=== PATIENT | male | born 1945 | race American Indian/Alaskan Native ===

== ENCOUNTER 2016-07-25 06:12 | Inpatient (IN) | payer MEDICARE ==
[2016-07-25 07:07] LABS: Basophils % (Auto) 1.2 % (0.0-1.8); Eosinophils % (Auto) 2.7 % (0.0-4.3); Hematocrit 36.2 % (35.5-45.6); Hemoglobin 11.5 gm/dl (11.8-15.2); Mean Corpuscular HGB Conc 32 % (32-34); Mean Corpuscular Hemoglobin 28 pg (28-32); Mean Corpuscular Volume 88 fl (84-94); Platelet Count 225 K/mm3 (140-440); Red Blood Count 4.14 M/mm3 (3.65-5.03); Red Cell Distribution Width 17.1 % (13.2-15.2); White Blood Count 6.3 K/mm3 (4.5-11.0)
[2016-07-25 07:25] LABS: Calcium 8.7 mg/dL (8.4-10.2); Chloride 107.4 mmol/L (98-107); Potassium 4.2 mmol/L (3.6-5.0)
--- NOTE | 2016-07-25 07:25 | XRay Report ---
ROUTINE CHEST, TWO VIEWS: HISTORY: Shortness of breath. Moderate to severe cardiomegaly and moderate pulmonary venous congestion appear relatively stable since 06/15/16. The lungs are clear. No large pleural effusion, consolidation or pneumothorax. Previous CABG changes are noted. The thoracic cage is grossly intact. IMPRESSION: Cardiomegaly and pulmonary venous congestion but no CHF. Little change since 06/15/16.
[2016-07-25] MEDS ORDERED: LASIX IV ONE (17:10)
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
[2016-07-26] MEDS: APRESOLINE IV PRN ×2 (00:32→06:24)
[2016-07-26] MEDS ORDERED: AMBIEN PO PRN (00:35)
[2016-07-26] MEDS ORDERED: COLCRYS PO PRN (00:35)
[2016-07-26] MEDS ORDERED: NORCO 7.5/325 PO PRN (00:35)
--- NOTE | 2016-07-26 00:41 | Event Note ---
Date: 07/25/16 See H/p in reports CHF exacerbation HTN HLD Gout Depression CAD ECHO/cardiology consult Lasix 40 q12h
--- NOTE | 2016-07-26 01:46 | History and Physical Report ---
CHIEF COMPLAINT: Increasing shortness of breath for the last 2 to 3 days. HISTORY OF PRESENT ILLNESS: A 71-year-old male presents with increasing shortness of breath off and on for 4 months, worsened last night. The patient has a history of CHF, hypertension, mitral valve replacement, coronary artery disease, and stent placement in the past. The patient has an ejection fraction of 70% to 75%. Orthopnea present. Paroxysmal nocturnal dyspnea present. Unable to walk more than few steps. The patient has [place] Heart Association class 4 symptoms. No fever, no chills. PAST MEDICAL HISTORY: Significant for hypertension, hyperlipidemia, coronary artery disease. Also, depression and history of gout. SURGICAL HISTORY: Significant for quadruple bypass surgery and stent placement. Also, mitral valve placement. SOCIAL HISTORY: Does not smoke. No alcohol, no recreational drugs. FAMILY HISTORY: Significant for hypertension. REVIEW OF SYSTEMS: Significant for: CONSTITUTIONAL: No weight loss, no weight gain. No weakness. No poor appetite. HEENT: No sore throat, no postnasal drip. CARDIOVASCULAR AND RESPIRATORY SYSTEM: Shortness of breath on minimal exertion present. Paroxysmal nocturnal dyspnea present. Orthopnea present. No palpitations. No irregular heart beat. No cough. No excessive sputum. GASTROINTESTINAL: No nausea, no vomiting, no diarrhea. GENITOURINARY SYSTEM: No dysuria, no flank pain. MUSCULOSKELETAL SYSTEM: No joint pain, no morning stiffness. CENTRAL NERVOUS SYSTEM: No syncope, no seizures. No focal deficits. INTEGUMENTARY SYSTEM: No rash, no pruritus, no redness, no sores, no wounds, no boils. PSYCHIATRIC: Some depression present. ENDOCRINE: No cold intolerance, heat intolerance, or polyphagia. ALLERGY AND IMMUNOLOGIC: No urticaria. No allergic rhinitis. HEMATOLOGIC AND LYMPHATIC SYSTEM: No easy bruising or easy bleeding. A 14-point review of systems was done. Other than shortness of breath and PND essentially negative. PHYSICAL EXAMINATION: GENERAL: Elderly male, cooperative during examination. VITAL SIGNS: Blood pressure is 153/92, temperature is 98, pulse is 72, respirations are 31. HEENT: Unremarkable. Pupils equal and reactive. NECK: Supple. No lymphadenopathy, no thyromegaly. LUNGS: Scattered rales bilaterally. CARDIOVASCULAR: S1, S2 heard. No gallop, no murmur, no rub. Apical impulse in left fifth intercostal space in midclavicular line. ABDOMEN: Soft and benign. No hepatosplenomegaly, no guarding, no rigidity. Hernial orifices are normal. EXTREMITIES: Good pedal pulses. No pedal edema. CENTRAL NERVOUS SYSTEM: Alert and oriented x 4, nonfocal exam. LABORATORY DATA: Significant for BUN and creatinine of 27 and 1.5, chloride is 107.4, bicarb is 21. EKG interpreted by me, sinus tachycardia with heart rate of about sometimes 100. Chest x-ray shows congestive heart failure. BNP is 9838. Troponin is 0.045. ASSESSMENT AND PLAN: 1. Congestive heart failure exacerbation-combined. The patient is started on Lasix 40 mg q.12 and potassium 20 meq q.12. The patient also to be seen by Cardiology at [facility]. Apparently, the patient follows with [facility], but not sure. 2. Hypertension. Continue amlodipine and olmesartan 10/40 p.o. daily, atenolol 50 mg daily, clonidine 0.1 t.i.d. 3. Coronary artery disease. Continue aspirin 325 mg daily and Plavix 75 mg daily and also, isosorbide mononitrate 30 mg p.o. daily. 4. Depression. Continue trazodone. 5. Hyperlipidemia. Continue atorvastatin 40 mg p.o. daily. 6. Deep venous thrombosis prophylaxis, Lovenox 40 mg subcutaneous daily. JOB# [id number] MELIDA/ELISEO QUIÑONES
[2016-07-26] MEDS: LASIX IV SCH ×2 (06:23→18:00)
[2016-07-26] MEDS: TENORMIN PO SCH (09:26)
[2016-07-26] MEDS: K-DUR PO SCH ×2 (09:26→22:25)
[2016-07-26] MEDS: PLAVIX PO SCH (09:26)
[2016-07-26] MEDS: COZAAR PO SCH (09:28)
[2016-07-26] MEDS: IMDUR PO SCH (09:29)
[2016-07-26] MEDS: NORVASC PO SCH (09:29)
[2016-07-26] MEDS: CATAPRES PO SCH ×3 (09:30→22:24)
[2016-07-26] MEDS: ASPIRIN PO SCH (09:34)
--- NOTE | 2016-07-26 09:43 | Progress Note ---
Assessment and Plan Assessment and plan: 1. 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 Patient with recent echocardiogram which revealed EF of 30-35% and elevated filling pressures. Patient had evidence of right ventricular enlargement and dysfunction. Continue diuresis. Cardiology consultation pending. 2. Acute hypoxemic respiratory failure. Etiology secondary to #1. Continue O2 and BiPAP as needed. 3. Coronary artery disease. Patient status post CABG 2007. Patient with recent heart catheterization with ROLLINS to LAD patent, SVG to D2 with a Y graft to PLOM is patent and Successful PCI of the RCA, proximal and ostial lesions treated with 4.0-4.5 DE and BM stents. Continue medical therapy. 4. 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 Elevated troponin. Patient with chronically elevated troponin secondary to #1. 6. Chronic kidney disease stage I. Baseline creatinine 1.73 and 2016. 7. Severe obstructive sleep apnea. CPAP. Pulmonary consultation. 8. Hypertension. Continue antihypertensive medications. 9. Hyperlipidemia. Continue medications. 10. DVT prophylaxis. Continue Lovenox. History Interval history: 71-year-old male was admitted with acute on chronic systolic CHF exacerbation. Patient still complains of shortness of breath. Patient appears tachypnea with accessory muscle use. Hospitalist Physical - Constitutional Vitals: Temp Pulse Resp BP Pulse Ox 98.2 F 86 22 120/64 98 07/26/16 07:33 07/26/16 07:33 07/26/16 07:33 07/26/16 07:33 07/26/16 07:33 General appearance: Present: mild distress - EENT Eyes: Present: PERRL, EOM intact ENT: hearing intact, clear oral mucosa, dentition normal - Neck Neck: Present: supple, normal ROM - Respiratory Respiratory effort: normal Respiratory: bilateral: diminished, rales - Cardiovascular Rhythm: regular Heart Sounds: Present: S1 & S2. Absent: gallop, rub - Extremities Extremities: no ischemia, Full ROM Extremity abnormal: edema (3+) - Abdominal General gastrointestinal: soft, non-tender, non-distended, normal bowel sounds - Integumentary Integumentary: Present: clear, warm, dry - Neurologic Neurologic: CNII-XII intact, moves all extremities Results - Labs CBC & Chem 7: 07/25/16 06:52 07/25/16 06:52 Labs: Laboratory Last Values WBC 6.3 K/mm3 (4.5-11.0) 07/25/16 06:52 RBC 4.14 M/mm3 (3.65-5.03) 07/25/16 06:52 Hgb 11.5 gm/dl (11.8-15.2) L 07/25/16 06:52 Hct 36.2 % (35.5-45.6) 07/25/16 06:52 MCV 88 fl (84-94) 07/25/16 06:52 MCH 28 pg (28-32) 07/25/16 06:52 MCHC 32 % (32-34) 07/25/16 06:52 RDW 17.1 % (13.2-15.2) H 07/25/16 06:52 Plt Count 225 K/mm3 (140-440) 07/25/16 06:52 Lymph % (Auto) 25.8 % (13.4-35.0) 07/25/16 06:52 [place] % (Auto) 8.6 % (0.0-7.3) H 07/25/16 06:52 Eos % (Auto) 2.7 % (0.0-4.3) 07/25/16 06:52 Baso % (Auto) 1.2 % (0.0-1.8) 07/25/16 06:52 Lymph # 1.6 K/mm3 (1.2-5.4) 07/25/16 06:52 [place] # 0.5 K/mm3 (0.0-0.8) 07/25/16 06:52 Eos # 0.2 K/mm3 (0.0-0.4) 07/25/16 06:52 Baso # 0.1 K/mm3 (0.0-0.1) 07/25/16 06:52 Seg Neutrophils % 61.7 % (40.0-70.0) 07/25/16 06:52 Seg Neutrophils # 3.9 K/mm3 (1.8-7.7) 07/25/16 06:52 Sodium 145 mmol/L (137-145) 07/25/16 06:52 Potassium 4.2 mmol/L (3.6-5.0) 07/25/16 06:52 Chloride 107.4 mmol/L (98-107) H 07/25/16 06:52 Carbon Dioxide 21 mmol/L (22-30) L 07/25/16 06:52 Anion Gap 21 mmol/L 07/25/16 06:52 BUN 27 mg/dL (9-20) H 07/25/16 06:52 Creatinine 1.5 mg/dL (0.8-1.5) 07/25/16 06:52 Estimated GFR 56 ml/min 07/25/16 06:52 BUN/Creatinine Ratio 18.00 % 07/25/16 06:52 Glucose 138 mg/dL (75-100) H 07/25/16 06:52 Calcium 8.7 mg/dL (8.4-10.2) 07/25/16 06:52 Troponin T 0.045 ng/mL (0.00-0.029) H 07/25/16 06:52 NT-Pro-B Natriuret Pep 9838 pg/mL (0-900) H 07/25/16 06:52 Triglycerides 68 mg/dL (2-149) 07/25/16 06:52 Cholesterol 127 mg/dL (50-199) 07/25/16 06:52 LDL Cholesterol Direct 75 mg/dL (50-130) 07/25/16 06:52 HDL Cholesterol 39 mg/dL (40-59) L 07/25/16 06:52 Cholesterol/HDL Ratio 3.25 % 07/25/16 06:52
[2016-07-26] MEDS ORDERED: AMLODIPINE BES PO SCH (10:00)
[2016-07-26] MEDS ORDERED: OLMESARTAN MED PO SCH (10:00)
[2016-07-26] MEDS ORDERED: LOVENOX SUB-Q SCH (10:00)
--- NOTE | 2016-07-26 11:32 | Consultation ---
Addendum entered and electronically signed by GLORIA DAMIAN MD 07/26/16 15:37 : As already reported, this patient has coronary artery disease, prior coronary bypass, and 3 months ago underwent stenting of the ostium and proximal segment of the previously unbypassed right coronary. 4.0-4.5 mm drug-eluting stents were used. On this presentation, the patient no chest pain, and no ischemic ST changes on his EKG despite admittedly being noncompliant with his medications including his oral antiplatelet therapy for one to 2 weeks prior to presentation. Will remind the patient about the use of his dual oral antiplatelet therapy, and the high risks of acute stent thrombosis/myocardial infarction associated with noncompliance. We strongly recommend that he maintains compliance with his medications as prescribed. Addendum entered and electronically signed by GLORIA DAMIAN MD 07/26/16 15:33 : Optimize medical therapy for that failure patient with underlying, severe ischemic cardiomyopathy and chronic systolic heart failure. After heart failure is optimally treated, the patient will benefit from predischarge early outpatient Persantine thallium. Original Note: History of Present Illness Consult date: 07/26/16 Consult reason: congestive heart failure History of present illness: This is a 71yr old man with a history of coronary artery disease status post remote 4 way coronary bypass grafting. A cardiac cath done at this hospital 3 months ago showed a patent ROLLINS graft to LAD patent. Patent SVG to second diagonal. Patent Y graft to posterolateral obtuse marginal. Proximal and ostial lesions of the RCA treated with stents. He also has a history of ischemic dilated cardiomyopathy and bioprosthetic mitral valve replacement. Echocardiogram done a month ago reports a moderate AR, moderate PH, ejection fraction 20%. Normal functioning bioprosthetic AVR. Patient returns to the hospital with worsening shortness of breath associated with lower extremity edema. He denies chest pain. Admits to running out of his medications and noncompliant with dietary/fluid restrictions. His ECG shows a sinus rhythm with LVH and a incomplete LBBB. No acute changes. Cardiac consultation requested for CHF. Medications and Allergies Allergies Allergy/AdvReac Type Severity Reaction Status Date / Time Iodinated Contrast Media - Allergy Anaphylaxis Verified 06/15/16 18:01 IV Dye Home Medications Medication Instructions Recorded Confirmed Last Taken Type Amlodipine Bes/Olmesartan Med 1 tab PO DAILY 04/30/16 07/25/16 1 Day Ago History [Nayeli 10-40 mg] Colchicine [Colcrys] 0.6 mg PO DAILY PRN 04/30/16 07/25/16 1 Day Ago History Zolpidem [Ambien] 10 mg PO QHS PRN 04/30/16 07/25/16 1 Day Ago History traZODone [Desyrel] 100 mg PO QHS 04/30/16 07/25/16 1 Day Ago History Aspirin [Aspirin TAB] 81 mg PO QDAY #30 tablet 05/08/16 07/25/16 1 Day Ago Rx Atenolol [Tenormin] 50 mg PO QDAY #30 tablet 05/08/16 07/25/16 1 Day Ago Rx AtorvaSTATin [Lipitor] 40 mg PO QHS #30 tablet 05/08/16 07/25/16 1 Day Ago Rx Clopidogrel [Plavix] 75 mg PO QDAY #30 tablet 05/08/16 07/25/16 1 Day Ago Rx Furosemide [Lasix TAB] 20 mg PO QDAY #30 tablet 05/08/16 07/25/16 1 Day Ago Rx HYDROcodone/APAP 7.5-325 [[place] 1 each PO Q8HR PRN #30 tablet 05/08/16 07/25/16 2 Weeks Ago Rx 7.5-325 mg TAB] ISOSORBIDE MONOnitrate [Imdur ER] 30 mg PO QDAY #30 tablet 05/08/16 07/25/16 1 Day Ago Rx cloNIDine [Catapres] 0.1 mg PO TID #90 tablet 05/08/16 07/25/16 1 Day Ago Rx Active Meds: Active Medications Acetaminophen/Hydrocodone Bitart ([place] 7.5/325) 1 each PO Q8HR PRN PRN Reason: Pain Amlodipine Besylate (Norvasc) 10 mg PO DAILY [facility] Last Admin: 07/26/16 09:29 Dose: 10 mg Aspirin (Aspirin) 81 mg PO QDAY [facility] Last Admin: 07/26/16 09:34 Dose: 81 mg Atenolol (Tenormin) 50 mg PO QDAY [facility] Last Admin: 07/26/16 09:26 Dose: 50 mg Atorvastatin Calcium (Lipitor) 40 mg PO QHS [facility] Clonidine HCl (Catapres) 0.1 mg PO TID [facility] Last Admin: 07/26/16 09:30 Dose: 0.1 mg Clopidogrel Bisulfate (Plavix) 75 mg PO QDAY [facility] Last Admin: 07/26/16 09:26 Dose: 75 mg Colchicine (Colcrys) 0.6 mg PO DAILY PRN PRN Reason: Gout Enoxaparin Sodium (Lovenox) 40 mg SUB-Q QDAY@2200 [facility] Furosemide (Lasix) 40 mg IV 0600,1800 [facility] Last Admin: 07/26/16 06:23 Dose: 40 mg Hydralazine HCl (Apresoline) 5 mg IV Q6HR PRN PRN Reason: Hypertension Last Admin: 07/26/16 06:24 Dose: 5 mg Isosorbide Mononitrate (Imdur) 30 mg PO QDAY [facility] Last Admin: 07/26/16 09:29 Dose: 30 mg Losartan Potassium (Cozaar) 100 mg PO DAILY [facility] Last Admin: 07/26/16 09:28 Dose: 100 mg Potassium Chloride (K-Dur) 20 meq PO Q12HR [facility] Last Admin: 07/26/16 09:26 Dose: 20 meq Trazodone HCl (Desyrel) 100 mg PO QHS [facility] Zolpidem Tartrate (Ambien) 10 mg PO QHS PRN PRN Reason: Sleep Physical Examination Vital Signs Temp Pulse Resp BP Pulse Ox 98.4 F 76 18 156/97 99 07/25/16 06:22 07/25/16 06:22 07/25/16 06:22 07/25/16 06:22 07/25/16 06:22 General appearance: mild distress HEENT: Positive: PERRL Neck: Positive: trachea midline Cardiac: Positive: Reg Rate and Rhythm Lungs: Positive: Decreased Breath Sounds Extremities: Present: +2 Edema Results 07/25/16 06:52 07/25/16 06:52 Assessment and Plan Congestive heart failure, systolic LVEF 20-25% on echo 06/2016 CAD s/p CABG 2008 Cath 04/2016: ROLLINS to LAD patent SVG to D2 with a Y graft to PLOM is patent Successful PCI of the RCA, proximal and ostial lesions treated with 4.0- 4.5 DE and BM stents. Bioprosthetic MVR- normal function by echo 06/2016 Severe obstructive sleep apnea Noncompliant Recommendations: Continue medical therapy for his CHF. Will initiate a trial of IV milrinone to enhance diuresis. Continue medical therapy for his CAD including DAPT with plavix and aspirin.
[2016-07-26] MEDS: DESYREL PO SCH (22:25)
[2016-07-26] MEDS: LOVENOX SUB-Q SCH (22:26)
[2016-07-26] MEDS: PRIMACOR 20 MG in D5W 80 ML IV SCH (22:38)
--- NOTE | 2016-07-27 00:59 | Admit Criteria Form ---
Admission Criteria Documentation: HEART FAILURE: COMMON COMPLICATIONS Clinical Indications for Inpatient Care (Place 'X' for any and all applicable criteria): Ongoing inpatient care may be indicated for heart failure with ANY ONE of the following (1)(2)(3)(4)(5): [ ]I. Ongoing need for care for primary condition requiring frequent therapy adjustments because of changes in cardiac function (eg, drug dosage changes for drugs that are renally metabolized) [ ]II. New-onset heart failure [ ]III. Heart failure with decreased urine output not responsive to attempts to optimize volume status [ ]IV. Acute cardiac ischemia causing or associated with failure [X ]V. Complications of heart failure, including ANY ONE of the following: [ ]a) Pericardial effusion [ ]b) Symptomatic pleural effusion [ ]c) O2 saturation <90% or PO2 < 60 mm Hg (8.0 kPa) on room air or require baseline supplemental O2 [ ]d) Tachypnea [X ]e) Dyspnea [ ]f) Syncope [ ]g) Change in mental status [ ]h) Acute renal insufficiency that is severe (reduction of more than 50% in estimated glomerular filtration rate from baseline) or progressive reduction of more than 25% in estimated glomerular filtration rate from baseline, with creatinine continuing to rise) [ ]i) Hemodynamic instability [ ]j) Anasarca [ ]k) Clinically significant metabolic abnormalities due to heart failure (eg, new-onset metabolic acidosis) Extended stay beyond goal length of stay for primary condition may be needed until ALL of the following are present(1)(3): [ ]a) Stable and effective diuretic regimen established (or patient on stable dialysis regimen if in chronic renal failure) [ ]b) Breathing comfortably at rest [ ]c) Saturation of arterial oxygen greater than 90% or at acceptable baseline [ ]d) Pulmonary edema absent or improved [ ]e) Hemodynamic stability [ ]f) Volume status acceptable on oral medication [ ]g) Peripheral or sacral edema absent or improved [ ]h) Renal function stable and manageable at a lower level of care [ ]i) Complications (eg, pleural effusion) resolved or manageable at a lower level of care [ ]j) Patient or caregiver has received written discharge instructions or educational material addressing activity level, diet, discharge medications, follow-up appointment, weight monitoring, and what to do if symptoms worsen The original [employer] content created by [email or web address] has been revised. The portions of the content which have been revised are identified through the use of italic text or in bold, and [facility] has neither reviewed nor approved the modified material.All other unmodified content is copyright [facility]. Please see references footnoted in the original [facility] edition 2016 Admission Criteria Met: Yes
[2016-07-27 05:45] LABS: Basophils % (Auto) 1.1 % (0.0-1.8); Eosinophils % (Auto) 6.7 % (0.0-4.3); Hemoglobin 10.8 gm/dl (11.8-15.2); Mean Corpuscular HGB Conc 33 % (32-34); Mean Corpuscular Hemoglobin 29 pg (28-32); Mean Corpuscular Volume 87 fl (84-94); Platelet Count 226 K/mm3 (140-440); Red Cell Distribution Width 16.9 % (13.2-15.2); White Blood Count 5.8 K/mm3 (4.5-11.0)
[2016-07-27 06:08] LABS: BUN/Creatinine Ratio 18.66; Calcium 8.7 mg/dL (8.4-10.2); Chloride 108.5 mmol/L (98-107)
[2016-07-27] MEDS: LASIX IV SCH ×2 (06:19→17:54)
[2016-07-27] MEDS: PRIMACOR 20 MG in D5W 80 ML IV SCH ×3 (06:36→20:14)
[2016-07-27] MEDS: TENORMIN PO SCH (09:16)
[2016-07-27] MEDS: K-DUR PO SCH ×2 (09:16→22:22)
[2016-07-27] MEDS: COZAAR PO SCH (09:17)
[2016-07-27] MEDS: IMDUR PO SCH (09:22)
[2016-07-27] MEDS: CATAPRES PO SCH ×3 (09:22→22:23)
[2016-07-27] MEDS: PLAVIX PO SCH (09:23)
[2016-07-27] MEDS: ASPIRIN PO SCH (09:24)
[2016-07-27] MEDS: NORVASC PO SCH (09:24)
--- NOTE | 2016-07-27 10:13 | Progress Note ---
Assessment and Plan Congestive heart failure, systolic LVEF 20-25% on echo 06/2016 CAD s/p CABG 2007 Cath 04/2016: ROLLINS to LAD patent SVG to D2 with a Y graft to PLOM is patent Successful PCI of the RCA, proximal and ostial lesions treated with 4.0- 4.5 DE and BM stents. Bioprosthetic MVR- normal function by echo 06/2016 Ischemic cardiomyopathy Severe obstructive sleep apnea Noncompliant Recommendations: Continue medical therapy for his CHF. Continue trial of IV milrinone for another 24hrs to enhance diuresis. Continue medical therapy for his CAD including DAPT with plavix and aspirin. Daily weights Strict I's and O's After heart failure is optimally treated, the patient will benefit from predischarge or early outpatient Persantine thallium. Subjective Date of service: 07/27/16 Interval history: Patient reports his breathing has improved. He denies chest pain. Objective Vital Signs Temp Pulse Pulse Pulse Resp BP BP 07/27/16 09:24 81 124/67 07/27/16 09:22 81 124/67 07/27/16 09:17 81 124/67 07/27/16 09:16 81 124/67 07/27/16 07:51 98.6 F 81 20 07/27/16 04:42 98.7 F 78 18 07/27/16 00:34 97.7 F 70 19 07/26/16 20:00 98.2 F 62 18 07/26/16 15:37 98.1 F 61 20 102/59 07/26/16 13:39 72 121/71 07/26/16 11:36 98.2 F 72 20 BP Pulse Ox 07/27/16 09:24 07/27/16 09:22 07/27/16 09:17 07/27/16 09:16 07/27/16 07:51 124/67 98 07/27/16 04:42 113/55 96 07/27/16 00:34 139/76 99 07/26/16 20:00 123/68 96 07/26/16 15:37 97 07/26/16 13:39 07/26/16 11:36 121/71 98 - Physical Examination General: No Apparent Distress HEENT: Positive: PERRL Neck: Positive: trachea midline Cardiac: Positive: Reg Rate and Rhythm Lungs: Positive: Decreased Breath Sounds Neuro: Positive: Grossly Intact Extremities: Present: +2 Edema - Labs and Meds CBC 07/27/16 Range/Units 04:25 WBC 5.8 (4.5-11.0) K/mm3 RBC 3.80 (3.65-5.03) M/mm3 Hgb 10.8 L (11.8-15.2) gm/dl Hct 33.0 L (35.5-45.6) % Plt Count 226 (140-440) K/mm3 Lymph # 1.4 (1.2-5.4) K/mm3 [place] # 0.7 (0.0-0.8) K/mm3 Eos # 0.4 (0.0-0.4) K/mm3 Baso # 0.1 (0.0-0.1) K/mm3 Comprehensive Metabolic Panel 07/27/16 Range/Units 04:25 Sodium 148 H (137-145) mmol/L Potassium 4.0 (3.6-5.0) mmol/L Chloride 108.5 H (98-107) mmol/L Carbon Dioxide 26 (22-30) mmol/L BUN 28 H (9-20) mg/dL Creatinine 1.5 (0.8-1.5) mg/dL Glucose 108 H (75-100) mg/dL Calcium 8.7 (8.4-10.2) mg/dL
--- NOTE | 2016-07-27 10:40 | Query- Abnormal Electrolytes ---
Dear Date:07/27/16 [employer] Front Desk Clerk/CDS:Gagan Neal Phone#: Exercise your independent professional judgment when responding to this query. Questions asked do not imply a particular answer is desired or expected. We greatly appreciate your clarification on this issue. Clinical Documentation States: 71 y/o m admitted 07/25/16 for acute CHF exacerbation, systolic. Upon investigation of lab chem profile sodium values below. Clinical Findings Show: Sodium level => 148 Can you please clarify whether you mean? [ ] Hyponatremia [ ] Hypokalemia [ ] Hypocalcemia [ ] Hypomagnesemia [ x] Hypernatremia [ ] Hyperkalemia [ ] Hypercalcemia [ ] Hypermagnesemia [ ] Sodium deficiency [ ] Potassium deficiency [ ] Hypochloremia [ ] Sodium excess [ ] Potassium excess [ ] Hyperchloremia [ ] Sodium overload [ ] Potassium overload [ ] Hypophosphatemia [ ] Hyperphosphatemia Acidosis; [ ] Respiratory [ ] Metabolic Alkalosis; [ ] Respiratory [ ] Metabolic [ ] Other: [ ] Comment/Explanation: Present on Admission: [ x] Yes (Y) [ ] Clinically undeterminable (W) [ ]No(N) Please also document response in your Progress Notes and/or Discharge Summary and indicate if the condition was present on admission. NURIA
--- NOTE | 2016-07-27 11:54 | Progress Note ---
Assessment and Plan Assessment and plan: 1. Acute on chronic combined systolic and diastolic heart failure. Patient with recent echocardiogram which revealed EF of 30-35% and elevated filling pressures. Patient had evidence of right ventricular enlargement and dysfunction. Continue diuresis. Milrinone added. Continue daily weights. Strict I&O's. Cardiology following. 2. Acute hypoxemic respiratory failure. Etiology secondary to #1. Continue O2 and BiPAP as needed. 3. Coronary artery disease. Patient status post CABG 2007. Patient with recent heart catheterization with ROLLINS to LAD patent, SVG to D2 with a Y graft to PLOM is patent and Successful PCI of the RCA, proximal and ostial lesions treated with 4.0-4.5 DE and BM stents. Continue medical therapy--DAPT with Plavix and aspirin. Consider Persantine thallium per cardiology. 4. 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 Elevated troponin. Patient with chronically elevated troponin secondary to #1. 6. Chronic kidney disease stage I. Baseline creatinine 1.73 and 2016. 7. Severe obstructive sleep apnea. CPAP. 8. Hypertension. Continue antihypertensive medications. 9. Hyperlipidemia. Continue medications. 10. DVT prophylaxis. Continue Lovenox. History Interval history: 71-year-old male was admitted with acute on chronic systolic CHF exacerbation. Patient still complains of shortness of breath. However, patient states his dyspnea is somewhat better. Hospitalist Physical - Constitutional Vitals: Temp Pulse Resp BP Pulse Ox 98.6 F 81 20 124/67 98 07/27/16 07:51 07/27/16 09:24 07/27/16 07:51 07/27/16 09:24 07/27/16 07:51 General appearance: Present: no acute distress - EENT Eyes: Present: PERRL, EOM intact ENT: hearing intact, clear oral mucosa, dentition normal - Neck Neck: Present: supple, normal ROM - Respiratory Respiratory effort: normal Respiratory: bilateral: CTA - Cardiovascular Rhythm: regular Heart Sounds: Present: S1 & S2. Absent: gallop, rub - Extremities Extremities: no ischemia, No edema, Full ROM - Abdominal General gastrointestinal: soft, non-tender, non-distended, normal bowel sounds - Integumentary Integumentary: Present: clear, warm, dry - Neurologic Neurologic: CNII-XII intact, moves all extremities Results - Labs CBC & Chem 7: 01/13/17 04:25 07/27/16 04:25 Labs: Laboratory Last Values WBC 5.8 K/mm3 (4.5-11.0) 07/27/16 04:25 RBC 3.80 M/mm3 (3.65-5.03) 07/27/16 04:25 Hgb 10.8 gm/dl (11.8-15.2) L 07/27/16 04:25 Hct 33.0 % (35.5-45.6) L 07/27/16 04:25 MCV 87 fl (84-94) 07/27/16 04:25 MCH 29 pg (28-32) 07/27/16 04:25 MCHC 33 % (32-34) 07/27/16 04:25 RDW 16.9 % (13.2-15.2) H 07/27/16 04:25 Plt Count 226 K/mm3 (140-440) 07/27/16 04:25 Lymph % (Auto) 24.7 % (13.4-35.0) 07/27/16 04:25 [place] % (Auto) 11.5 % (0.0-7.3) H 07/27/16 04:25 Eos % (Auto) 6.7 % (0.0-4.3) H 07/27/16 04:25 Baso % (Auto) 1.1 % (0.0-1.8) 07/27/16 04:25 Lymph # 1.4 K/mm3 (1.2-5.4) 07/27/16 04:25 [place] # 0.7 K/mm3 (0.0-0.8) 07/27/16 04:25 Eos # 0.4 K/mm3 (0.0-0.4) 07/27/16 04:25 Baso # 0.1 K/mm3 (0.0-0.1) 07/27/16 04:25 Seg Neutrophils % 56.0 % (40.0-70.0) 07/27/16 04:25 Seg Neutrophils # 3.2 K/mm3 (1.8-7.7) 07/27/16 04:25 Sodium 148 mmol/L (137-145) H 07/27/16 04:25 Potassium 4.0 mmol/L (3.6-5.0) 07/27/16 04:25 Chloride 108.5 mmol/L (98-107) H 07/27/16 04:25 Carbon Dioxide 26 mmol/L (22-30) 07/27/16 04:25 Anion Gap 18 mmol/L 07/27/16 04:25 BUN 28 mg/dL (9-20) H 07/27/16 04:25 Creatinine 1.5 mg/dL (0.8-1.5) 07/27/16 04:25 Estimated GFR 56 ml/min 07/27/16 04:25 BUN/Creatinine Ratio 18.66 % 07/27/16 04:25 Glucose 108 mg/dL (75-100) H 07/27/16 04:25 Calcium 8.7 mg/dL (8.4-10.2) 07/27/16 04:25 Troponin T 0.045 ng/mL (0.00-0.029) H 07/25/16 06:52 NT-Pro-B Natriuret Pep 9838 pg/mL (0-900) H 07/25/16 06:52 Triglycerides 68 mg/dL (2-149) 07/25/16 06:52 Cholesterol 127 mg/dL (50-199) 07/25/16 06:52 LDL Cholesterol Direct 75 mg/dL (50-130) 07/25/16 06:52 HDL Cholesterol 39 mg/dL (40-59) L 07/25/16 06:52 Cholesterol/HDL Ratio 3.25 % 07/25/16 06:52
[2016-07-27] MEDS: DESYREL PO SCH (22:22)
[2016-07-27] MEDS: LOVENOX SUB-Q SCH (22:23)
[2016-07-28] MEDS: PRIMACOR 20 MG in D5W 80 ML IV SCH (02:20)
[2016-07-28] MEDS: LASIX IV SCH ×2 (05:51→18:27)
[2016-07-28] MEDS: CATAPRES PO SCH ×3 (08:00→21:08)
[2016-07-28] MEDS ORDERED: LEXISCAN IV ONE ×2 (09:26→09:31)
--- NOTE | 2016-07-28 10:13 | Progress Note ---
Assessment and Plan 1. Dilated ischemic cardiomyopathy LV ejection fraction 20-25% 2. Coronary artery disease status post CABG in 2007 recent cardiac cath shows patent grafts and stent 3. Bioprosthetic mitral valve functioning normally 4. Obstructive sleep apnea 5. History of noncompliance Plan. Continue present cardiac management. Discharge planning Subjective Date of service: 08/04/16 Interval history: No cardiac symptoms. Objective Vital Signs Temp Pulse Pulse Resp BP BP Pulse Ox 07/28/16 07:38 98.6 F 83 20 128/58 98 07/28/16 05:09 98.2 F 88 20 119/57 99 07/28/16 00:26 97.6 F 82 18 100/58 96 07/27/16 20:17 98.3 F 84 18 97/55 98 07/27/16 16:26 97.8 F 78 20 90/53 98 07/27/16 13:27 98.3 F 84 20 103/57 98 07/27/16 13:14 112 H 117/85 - Physical Examination General: Appears Well, No Apparent Distress HEENT: Positive: PERRL Neck: Positive: neck supple, trachea midline. Negative: JVD/HJR Cardiac: Positive: Regular Rate, S1/S2, PMI, Laterally Displaced Lungs: Positive: clear to auscultation, No Wheeze, Rales, Rhonchi Neuro: Positive: Grossly Intact, No Lateralizing Findings Abdomen: Positive: Unremarkable, Active Bowel Sounds Skin: Positive: Clear Extremities: Absent: edema
--- NOTE | 2016-07-28 10:14 | Progress Note ---
Assessment and Plan Assessment and plan: 1. Acute on chronic combined systolic and diastolic heart failure. Patient with recent echocardiogram which revealed EF of 30-35% and elevated filling pressures. Patient had evidence of right ventricular enlargement and dysfunction. Continue diuresis. Continue Milrinone drip. Continue daily weights. Strict I&O's. Cardiology following. 2. Acute hypoxemic respiratory failure. Etiology secondary to #1. Continue O2 and BiPAP as needed. 3. Coronary artery disease. Patient status post CABG 2007. Patient with recent heart catheterization with ROLLINS to LAD patent, SVG to D2 with a Y graft to PLOM is patent and Successful PCI of the RCA, proximal and ostial lesions treated with 4.0-4.5 DE and BM stents. Continue medical therapy--DAPT with Plavix and aspirin. Consider Persantine thallium per cardiology. 4. 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 Elevated troponin. Patient with chronically elevated troponin secondary to #1. 6. Chronic kidney disease stage I. Baseline creatinine 1.73 and 2016. 7. Severe obstructive sleep apnea. CPAP. 8. Hypertension. Continue antihypertensive medications. 9. Hyperlipidemia. Continue medications. 10. DVT prophylaxis. Continue Lovenox. History Interval history: 71-year-old male was admitted with acute on chronic systolic CHF exacerbation. Patient still complains of shortness of breath. However, patient states his dyspnea is somewhat better. Hospitalist Physical - Constitutional Vitals: Temp Pulse Resp BP Pulse Ox 98.6 F 83 20 128/58 98 07/28/16 07:38 07/28/16 07:38 07/28/16 07:38 07/28/16 07:38 07/28/16 07:38 General appearance: Present: no acute distress - EENT Eyes: Present: PERRL, EOM intact ENT: hearing intact, clear oral mucosa, dentition normal - Neck Neck: Present: supple, normal ROM - Respiratory Respiratory effort: normal Respiratory: bilateral: diminished, rales - Cardiovascular Rhythm: regular Heart Sounds: Present: S1 & S2. Absent: gallop, rub - Extremities Extremities: no ischemia, No edema, Full ROM - Abdominal General gastrointestinal: soft, non-tender, non-distended, normal bowel sounds - Integumentary Integumentary: Present: clear, warm, dry - Neurologic Neurologic: CNII-XII intact, moves all extremities Results - Labs CBC & Chem 7: 07/27/16 04:25 07/27/16 04:25 Labs: Laboratory Last Values WBC 5.8 K/mm3 (4.5-11.0) 07/27/16 04:25 RBC 3.80 M/mm3 (3.65-5.03) 07/27/16 04:25 Hgb 10.8 gm/dl (11.8-15.2) L 07/27/16 04:25 Hct 33.0 % (35.5-45.6) L 07/27/16 04:25 MCV 87 fl (84-94) 07/27/16 04:25 MCH 29 pg (28-32) 07/27/16 04:25 MCHC 33 % (32-34) 07/27/16 04:25 RDW 16.9 % (13.2-15.2) H 07/27/16 04:25 Plt Count 226 K/mm3 (140-440) 07/27/16 04:25 Lymph % (Auto) 24.7 % (13.4-35.0) 07/27/16 04:25 [place] % (Auto) 11.5 % (0.0-7.3) H 07/27/16 04:25 Eos % (Auto) 6.7 % (0.0-4.3) H 07/27/16 04:25 Baso % (Auto) 1.1 % (0.0-1.8) 07/27/16 04:25 Lymph # 1.4 K/mm3 (1.2-5.4) 07/27/16 04:25 [place] # 0.7 K/mm3 (0.0-0.8) 07/27/16 04:25 Eos # 0.4 K/mm3 (0.0-0.4) 07/27/16 04:25 Baso # 0.1 K/mm3 (0.0-0.1) 07/27/16 04:25 Seg Neutrophils % 56.0 % (40.0-70.0) 07/27/16 04:25 Seg Neutrophils # 3.2 K/mm3 (1.8-7.7) 07/27/16 04:25 Sodium 148 mmol/L (137-145) H 07/27/16 04:25 Potassium 4.0 mmol/L (3.6-5.0) 07/27/16 04:25 Chloride 108.5 mmol/L (98-107) H 07/27/16 04:25 Carbon Dioxide 26 mmol/L (22-30) 07/27/16 04:25 Anion Gap 18 mmol/L 07/27/16 04:25 BUN 28 mg/dL (9-20) H 07/27/16 04:25 Creatinine 1.5 mg/dL (0.8-1.5) 07/27/16 04:25 Estimated GFR 56 ml/min 07/27/16 04:25 BUN/Creatinine Ratio 18.66 % 07/27/16 04:25 Glucose 108 mg/dL (75-100) H 07/27/16 04:25 Calcium 8.7 mg/dL (8.4-10.2) 07/27/16 04:25 Troponin T 0.045 ng/mL (0.00-0.029) H 07/25/16 06:52 NT-Pro-B Natriuret Pep 9838 pg/mL (0-900) H 07/25/16 06:52 Triglycerides 68 mg/dL (2-149) 07/25/16 06:52 Cholesterol 127 mg/dL (50-199) 07/25/16 06:52 LDL Cholesterol Direct 75 mg/dL (50-130) 07/25/16 06:52 HDL Cholesterol 39 mg/dL (40-59) L 07/25/16 06:52 Cholesterol/HDL Ratio 3.25 % 07/25/16 06:52
[2016-07-28] MEDS: PLAVIX PO SCH (11:32)
[2016-07-28] MEDS: BABY ASPIRIN PO SCH (11:33)
[2016-07-28] MEDS: TOPROL XL PO SCH (11:33)
[2016-07-28] MEDS: IMDUR PO SCH (11:34)
[2016-07-28] MEDS: COZAAR PO SCH (11:34)
[2016-07-28] MEDS: NORVASC PO SCH (11:35)
[2016-07-28] MEDS: K-DUR PO SCH ×2 (11:36→21:08)
[2016-07-28] MEDS: LOVENOX SUB-Q SCH (21:08)
[2016-07-28] MEDS: DESYREL PO SCH (21:08)
[2016-07-29] MEDS: LASIX IV SCH (05:40)
[2016-07-29 07:21] VITALS: BP 154/79
[2016-07-29] MEDS: PLAVIX PO SCH (09:48)
[2016-07-29] MEDS: TOPROL XL PO SCH (09:48)
[2016-07-29] MEDS: IMDUR PO SCH (09:48)
[2016-07-29] MEDS: COZAAR PO SCH (09:48)
[2016-07-29] MEDS: K-DUR PO SCH (09:49)
[2016-07-29] MEDS: CATAPRES PO SCH (09:49)
[2016-07-29] MEDS: BABY ASPIRIN PO SCH (09:49)
[2016-07-29] MEDS: NORVASC PO SCH (09:52)
--- NOTE | 2016-07-29 10:11 | Progress Note ---
Assessment and Plan 1. Dilated ischemic cardiomyopathy LV ejection fraction 20-25% 2. Coronary artery disease status post CABG in 2007 recent cardiac cath shows patent grafts and stent 3. Bioprosthetic mitral valve functioning normally 4. Obstructive sleep apnea 5. History of noncompliance Plan. Continue present cardiac management. Discharge planning Subjective Date of service: 07/29/16 Interval history: No cardiac symptoms. States he feels fine Objective Vital Signs Temp Pulse Pulse Resp BP BP Pulse Ox 07/29/16 09:59 98 07/29/16 07:20 99.2 F 73 20 154/79 97 07/29/16 06:00 68 07/29/16 04:57 98.8 F 67 20 138/79 99 07/29/16 00:02 98.2 F 54 L 18 103/68 98 07/28/16 20:03 97.6 F 78 20 122/59 99 07/28/16 15:36 98.3 F 66 20 135/76 97 07/28/16 14:31 64 134/73 07/28/16 12:00 84 07/28/16 11:35 80 140/67 07/28/16 11:34 80 140/67 07/28/16 11:33 80 140/67 07/28/16 11:29 97.2 F L 80 22 140/67 96 07/28/16 10:30 86 96/55 07/28/16 10:29 87 95/63 07/28/16 10:28 86 146/63 07/28/16 10:27 86 141/69 07/28/16 10:26 82 141/69 - Physical Examination General: Appears Well, No Apparent Distress HEENT: Positive: PERRL Neck: Positive: neck supple, trachea midline. Negative: JVD/HJR Cardiac: Positive: Regular Rate, S1/S2, S3, PMI, Dilated, Laterally Displaced Lungs: Positive: clear to auscultation, No Wheeze, Rales, Rhonchi Neuro: Positive: Grossly Intact, No Lateralizing Findings Abdomen: Positive: Unremarkable, Active Bowel Sounds Skin: Positive: Clear Extremities: Absent: edema
--- NOTE | 2016-07-29 10:58 | Discharge Summary ---
Providers - Providers Date of Admission: 07/25/16 18:19 Date of discharge: 07/29/16 Attending physician: MERVIN MCMANUS 07/26/16 00:39 Consult to Physician [CONS] Routine Consulting Provider: GLORIA DAMIAN Reason For Exam: chf Place consult to:: [facility] Notified:: [email or web address] Was contact made?: Yes 07/28/16 16:15 Physical Therapy Evaluation and Treat [CONS] Routine Comment: Reason For Exam: weakness Primary care physician: RADHA TORRES Hospitalization Reason for admission: chf Condition: Stable Hospital course: This is a 71yr old man with a history of coronary artery disease status post remote 4 way coronary bypass grafting. A cardiac cath done at this hospital 3 months ago showed a patent ROLLINS graft to LAD patent. Patent SVG to second diagonal. Patent Y graft to posterolateral obtuse marginal. Proximal and ostial lesions of the RCA treated with stents. He also has a history of ischemic dilated cardiomyopathy and bioprosthetic mitral valve replacement. Echocardiogram done a month ago reports a moderate AR, moderate PH, ejection fraction 20%. Normal functioning bioprosthetic AVR. Patient returned to the hospital with worsening shortness of breath associated with lower extremity edema. He denied chest pain. He admitted to running out of his medications and noncompliance with dietary/fluid restrictions. His ECG showed a sinus rhythm with LVH and a incomplete LBBB. No acute changes. Cardiac consultation was requested for CHF. Patient underwent a short course of IV milrinone therapy. Patient also received appropriate medical therapy including diuresis. Patient has significant improvement clinically and with chest x-ray findings. The milrinone drip was discontinued. Cardiology felt the patient was optimal for their standpoint for discharge. Patient was felt to received maximal hospital benefit and will be discharged home. Dedicated discharge time 35 minutes. Disposition: DISCHARGED TO HOME OR SELFCARE Time spent for discharge: 35 Core Measure Documentation - Palliative Care Palliative Care/ Comfort Measures: Not Applicable - Core Measures Any of the following diagnoses?: heart failure - Heart Failure Discharge Requirements TITI/ARB for LVSD if EF <40%: Yes Beta beena at discharge: Yes Exam - Constitutional Vitals: Temp Pulse Resp BP Pulse Ox 99.2 F 73 20 154/79 98 07/29/16 07:20 07/29/16 07:20 07/29/16 07:20 07/29/16 07:20 07/29/16 09:59 General appearance: Present: no acute distress, well-nourished - EENT Eyes: Present: PERRL ENT: hearing intact, clear oral mucosa - Neck Neck: Present: supple, normal ROM - Respiratory Respiratory effort: normal Respiratory: bilateral: CTA - Cardiovascular Heart Sounds: Present: S1 & S2. Absent: rub, click - Extremities Extremities: pulses symmetrical, No edema Peripheral Pulses: within normal limits - Abdominal General gastrointestinal: Present: soft, non-tender, non-distended, normal bowel sounds Male genitourinary: Present: normal - Integumentary Integumentary: Present: clear, warm, dry - Musculoskeletal Musculoskeletal: gait normal, strength equal bilaterally - Psychiatric Psychiatric: appropriate mood/affect, intact judgment & insight - Neurologic Neurologic: CNII-XII intact, moves all extremities Plan Activity: no restrictions Weight Bearing Status: Full Weight Bearing Diet: low fat, low cholesterol, low salt Special Instructions: record daily weights, record daily BP diary Follow up with: RADHA TORRES MD [Primary Care Provider] - 3-5 Days LISA RUSSO MD [Staff Physician] - 7 Days Prescriptions: Amlodipine Bes/Olmesartan Med [Nayeli 10-40 mg] 1 tab PO DAILY #30 tablet Aspirin [Aspirin TAB] 81 mg PO QDAY #30 tablet AtorvaSTATin [Lipitor] 40 mg PO QHS #30 tablet Clopidogrel [Plavix] 75 mg PO QDAY #30 tablet Colchicine [Colcrys] 0.6 mg PO DAILY PRN #30 tablet PRN Reason: Gout Furosemide [Lasix TAB] 40 mg PO QDAY #30 tablet HYDROcodone/APAP 7.5-325 [[place] 7.5-325 mg TAB] 1 each PO Q8HR PRN #30 tablet PRN Reason: Pain ISOSORBIDE MONOnitrate [Imdur ER] 30 mg PO QDAY #30 tablet Metoprolol Xl [Metoprolol SUCCINATE ER TAB] 100 mg PO QDAY #30 tablet Potassium Chloride [K-Dur] 20 meq PO DAILY #30 tablet Zolpidem [Ambien] 10 mg PO QHS PRN #30 tablet PRN Reason: Sleep cloNIDine [Catapres] 0.1 mg PO TID #90 tablet traZODone [Desyrel] 100 mg PO QHS #30 tablet
--- NOTE | 2016-07-30 23:58 | Treadmill Report ---
THALLIUM STRESS TEST LEFT VENTRICLE: Left ventricle appears moderately to severely dilated. There is fairly homogeneous uptake of the tracer in all segments, with evidence of mild diaphragmatic attenuation artifact. No significant reversible defects identified. Gated analysis reports severe left ventricular systolic dysfunction with ejection fraction calculated at 23%. CONCLUSION: Evidence of a dilated cardiomyopathy, with severe left ventricular systolic dysfunction. There is fairly homogeneous uptake of the tracer in all segments, suggesting a nonischemic cardiomyopathy. Clinical correlation is recommended. JOB# [id number] CA/NTS
== END 2016-07-29 18:00 | disposition home or self-care (01) | DRG 291 ==
LOC: ED 06:12 → 4A 18:19
PROVIDERS: ADMIT Internal Medicine; ATTEND Hospitalist
DX: I13.0 Hypertensive heart and chronic kidney disease with heart failure and stage 1 through stage 4 chronic kidney disease, or unspecified chronic kidney disease (principal); I50.43 Acute on chronic combined systolic (congestive) and diastolic (congestive) heart failure; J96.01 Acute respiratory failure with hypoxia; E87.0 Hyperosmolality and hypernatremia; I42.0 Dilated cardiomyopathy; I25.10 Atherosclerotic heart disease of native coronary artery without angina pectoris; E78.5 Hyperlipidemia, unspecified; F32.9 Major depressive disorder, single episode, unspecified; M10.9 Gout, unspecified; I34.0 Nonrheumatic mitral (valve) insufficiency; N18.1 Chronic kidney disease, stage 1; G47.33 Obstructive sleep apnea (adult) (pediatric); I25.5 Ischemic cardiomyopathy; Z95.2 Presence of prosthetic heart valve; Z95.1 Presence of aortocoronary bypass graft; Z82.49 Family history of ischemic heart disease and other diseases of the circulatory system; Z79.2 Long term (current) use of antibiotics; Z79.82 Long term (current) use of aspirin; Z79.899 Other long term (current) drug therapy; Z91.041 Radiographic dye allergy status; Z91.14 Patient's other noncompliance with medication regimen
CPT/HCPCS: 36415; 71020; 78452; 80048; 80061; 83880; 84484; 85025; 93005; 93010; 93017; 96374; 99406; A9270-GY; A9502; J0360; J1650; J1940; J2260; J2785